=== PATIENT | female | born 1940 | race Caucasian/White ===

== ENCOUNTER 2021-07-09 20:40 | Inpatient (IN) | payer OTHER ==
[~2021-07-09] VITALS: Ht 154.9 cm; Wt 23.9 kg
[2021-07-09] MEDS ORDERED: MORPHINE SULFATE INJECTION 2 MG/2 ML SYRG IV ONE (21:00)
[2021-07-09] MEDS ORDERED: ONDANSETRON HCL 4 MG/2 ML VIAL IV ONE (21:30)
[2021-07-09] MEDS ORDERED: MORPHINE SULFATE 4 MG/ML SYR/VIAL IV ONE (21:30)
[2021-07-09 22:05] LABS: Basophils # (auto) 0 10 ^3/uL (0-0.2); Basophils % (auto) 0.5 % (0.0-2.0); Eosinophils # (auto) 0.4 10 ^3/uL (0-0.8); Hematocrit 36.4 % (36.0-46.0); Hemoglobin 12.3 g/dL (12.2-16.2); Lymphocytes # (auto) 1.2 10 ^3/uL (0.4-5.4); Lymphocytes % (auto) 14.4 % (10.0-50.0); Mean Corpuscular Hemoglobin 31.9 pg (28.0-32.0); Mean Corpuscular Hgb Conc. 33.7 g/dL (32.0-36.0); Mean Corpuscular Volume 94.7 fL (80.0-100.0); Monocytes % (auto) 12.9 % (0.0-12.0); Neutrophils # (auto) 5.4 10 ^3/uL (1.6-8.6); Neutrophils % (auto) 67.2 % (37.0-80.0); Red Blood Cells 3.85 10^6/uL (4.0-5.20); Red Cell Distribution Width 14.2 % (11.8-14.3); White Blood Cell 8.1 10^3/uL (4.4-10.8)
[2021-07-09 22:25] LABS: Chloride 104 mmol/L (98-107); Potassium 3.8 mmol/L (3.5-5.1); Sodium 135 mmol/L (136-145)
[2021-07-09 22:30] LABS: Alanine Aminotransferase 24 U/L (13-56); Albumin 3.2 g/dL (3.4-5.0); Anion Gap 7 (5-15); BUN/Creatinine Ratio 22.6; Blood Urea Nitrogen 12 mg/dL (7-18); Carbon Dioxide 24 mmol/L (21-32); GFR African American 142 mL/min; GFR Non-African American 117 mL/min; Glucose 100 mg/dL (74-106)
[2021-07-09 22:33] LABS: INR 1.05 (0.9-1.15); Partial Thromboplastin Time 32.8 sec (23.6-33.0)
[2021-07-09 22:34] LABS: Alkaline Phosphatase 53 U/L (45-117); Bilirubin, Total 0.6 mg/dL (0.2-1.0); Total Protein 6.1 g/dL (6.4-8.2)
[2021-07-09 22:45] LABS: Aspartate Aminotransferase 18 U/L (15-37)
[2021-07-10 00:23] LABS: Urine Bacteria NONE SEEN /hpf (None Seen); Urine Blood Negative /uL (Negative); Urine Mucus FEW (None Seen); Urine Specific Gravity 1.007 (1.001-1.035); Urine WBC 1 /hpf (0 - 5)
[2021-07-10] MEDS ORDERED: MORPHINE SULFATE INJECTION 2 MG/2 ML SYRG IV PRN (03:00)
[2021-07-10] MEDS ORDERED: ONDANSETRON HCL 4 MG/2 ML VIAL IV PRN (03:00)
[2021-07-10] MEDS ORDERED: NITROGLYCERIN 0.4 MG SL TAB SL PRN (03:00)
[2021-07-10] MEDS: ACETAMINOPHEN 325 MG TAB PO PRN ×2 (03:34→12:37)
[2021-07-10 07:13] LABS: Potassium 3.8 mmol/L (3.5-5.1)
[2021-07-10] MEDS ORDERED: ASPirin 81 mg TAB PO SCH (10:00)
[2021-07-10] MEDS ORDERED: FUROSEMIDE 20 MG TAB PO SCH (10:00)
[2021-07-10] MEDS ORDERED: PANTOPRAZOLE 40 MG TAB PO SCH (10:00)
[2021-07-10] MEDS ORDERED: ISOSORBIDE DINITRATE 10 MG TAB PO SCH (10:00)
[2021-07-10] MEDS ORDERED: AMIODARONE HCL 200 MG TAB PO SCH (10:00)
[2021-07-10] MEDS ORDERED: APIXABAN 2.5 MG TAB PO SCH ×3 (10:00→22:00)
[2021-07-10] MEDS ORDERED: APIX2.5T PO (11:15)
[2021-07-10] MEDS ORDERED: ATOR20TA50 PO (11:15)
[2021-07-10] MEDS ORDERED: ALEN70TA74 PO (11:15)
[2021-07-10] MEDS ORDERED: ANAS1TAB7 PO (11:16)
[2021-07-10] MEDS ORDERED: TRAZ1TAB12 PO (11:16)
[2021-07-10] MEDS ORDERED: GABA300C10 PO (11:16)
[2021-07-10] MEDS ORDERED: HYDR-4072 PO (11:16)
[2021-07-10 13:30] VITALS: BP 138/60
[2021-07-10] MEDS ORDERED: ATORVASTATIN 20 MG TAB PO SCH (22:00)
== END 2021-07-10 10:01 | disposition home or self-care (01) | DRG 313 ==
LOC: EDBD 20:40 → ER 20:46 → TELE 07-10 02:59
PROVIDERS: ADMIT Nurse Practitioner; ATTEND Nurse Practitioner
DX: R07.89 Other chest pain (principal); E44.0 Moderate protein-calorie malnutrition; I20.0 Unstable angina; Z68.1 Body mass index [BMI] 19.9 or less, adult; Z20.822 Contact with and (suspected) exposure to COVID-19; C50.919 Malignant neoplasm of unspecified site of unspecified female breast; E78.5 Hyperlipidemia, unspecified; I10 Essential (primary) hypertension; I35.0 Nonrheumatic aortic (valve) stenosis; I48.91 Unspecified atrial fibrillation; Z79.01 Long term (current) use of anticoagulants; Z85.3 Personal history of malignant neoplasm of breast; Z90.49 Acquired absence of other specified parts of digestive tract; Z93.2 Ileostomy status; Z93.3 Colostomy status; Z95.0 Presence of cardiac pacemaker; Z95.2 Presence of prosthetic heart valve; Z88.8 Allergy status to other drugs, medicaments and biological substances
CPT/HCPCS: 36415; 80048; 80053; 81001; 83690; 83880; 84484; 85025; 85610; 85730; 87426; 93306; 96374; 96375; G0378; J2405

== ENCOUNTER 2022-11-13 18:47 | Inpatient (IN) | payer OTHER ==
[~2022-11-13] VITALS: Ht 153.7 cm; Wt 53.9 kg
[~2022-11-13 18:47] MED LIST: ALEN70TA74 PO; ANAS1TAB7 PO; APIX2.5T PO; ATOR20TA50 PO; GABA300C10 PO; HYDR-4072 PO; TRAZ1TAB12 PO
[2022-11-13] MEDS ORDERED: MORPHINE SULFATE 4 MG/ML SYR/VIAL IV ONE (20:30)
[2022-11-13] MEDS ORDERED: ASPirin 325 MG TAB PO ONE (20:30)
[2022-11-13 20:39] LABS: Basophils # (auto) 0.1 10 ^3/uL (0-0.2); Basophils % (auto) 0.6 % (0.0-2.0); Eosinophils # (auto) 0.2 10 ^3/uL (0-0.8); Eosinophils % (auto) 2.9 % (0.0-7.0); Hematocrit 37.8 % (36.0-46.0); Hemoglobin 12.6 g/dL (12.2-16.2); Lymphocytes # (auto) 0.9 10 ^3/uL (0.4-5.4); Lymphocytes % (auto) 11.1 % (10.0-50.0); Mean Corpuscular Hemoglobin 33.1 pg (28.0-32.0); Mean Corpuscular Hgb Conc. 33.3 g/dL (32.0-36.0); Mean Corpuscular Volume 99.4 fL (80.0-100.0); Monocytes % (auto) 11.9 % (0.0-12.0); Neutrophils # (auto) 6.1 10 ^3/uL (1.6-8.6); Neutrophils % (auto) 73.5 % (37.0-80.0); Nucleated Red Blood Cells % 0.1 %; Red Cell Distribution Width 13.7 % (11.8-14.3); White Blood Cell 8.2 10^3/uL (4.4-10.8)
[2022-11-13 21:00] LABS: Albumin 3.7 g/dL (3.4-5.0); Anion Gap 9 (5-15); Blood Urea Nitrogen 26 mg/dL (7-18); Calcium 9.7 mg/dL (8.5-10.1); Carbon Dioxide 23 mmol/L (21-32); Chloride 103 mmol/L (98-107); Glucose 89 mg/dL (74-106); Potassium 4.6 mmol/L (3.5-5.1); Sodium 135 mmol/L (136-145)
[2022-11-13 21:01] LABS: BUN/Creatinine Ratio 38.8; GFR African American 108 mL/min; GFR Non-African American 89 mL/min
[2022-11-13 21:09] LABS: Alanine Aminotransferase 26 U/L (13-56); Alkaline Phosphatase 61 U/L (45-117); Aspartate Aminotransferase 22 U/L (15-37); Bilirubin, Total 0.4 mg/dL (0.2-1.0); Total Protein 6.4 g/dL (6.4-8.2)
[2022-11-13] MEDS ORDERED: MORPHINE SULFATE INJ 2 MG/ml SYRG IV PRN (22:15)
[2022-11-13] MEDS ORDERED: DOCUSATE SOD 100 MG CAP PO PRN (22:15)
[2022-11-13] MEDS ORDERED: NITROGLYCERIN 0.4 MG SL TAB SL PRN (22:15)
[2022-11-13] MEDS ORDERED: ONDANSETRON HCL 4 MG/2 ML VIAL IV PRN (22:15)
[2022-11-13] MEDS ORDERED: ACETAMINOPHEN 325 MG TAB PO PRN (22:15)
[2022-11-13] MEDS ORDERED: ISOS10TA2 PO (22:42)
[2022-11-13] MEDS ORDERED: traZODone HCL 50 MG TAB PO SCH (22:46)
[2022-11-14 04:41] LABS: Basophils # (auto) 0.1 10 ^3/uL (0-0.2); Basophils % (auto) 1.2 % (0.0-2.0); Eosinophils # (auto) 0.2 10 ^3/uL (0-0.8); Eosinophils % (auto) 3.7 % (0.0-7.0); Hematocrit 37.8 % (36.0-46.0); Hemoglobin 12.7 g/dL (12.2-16.2); Lymphocytes % (auto) 17.8 % (10.0-50.0); Mean Corpuscular Hgb Conc. 33.5 g/dL (32.0-36.0); Mean Corpuscular Volume 98.4 fL (80.0-100.0); Monocytes # (auto) 0.6 10 ^3/uL (0-1.3); Monocytes % (auto) 10.6 % (0.0-12.0); Neutrophils # (auto) 3.9 10 ^3/uL (1.6-8.6); Neutrophils % (auto) 66.7 % (37.0-80.0); Red Blood Cells 3.85 10^6/uL (4.0-5.20); Red Cell Distribution Width 13.5 % (11.8-14.3); White Blood Cell 5.9 10^3/uL (4.4-10.8)
[2022-11-14 05:00] LABS: Albumin 3.4 g/dL (3.4-5.0); BUN/Creatinine Ratio 28.8; Calcium 9.7 mg/dL (8.5-10.1); Potassium 3.9 mmol/L (3.5-5.1)
[2022-11-14 05:03] LABS: Bilirubin, Total 0.5 mg/dL (0.2-1.0); Total Protein 6.6 g/dL (6.4-8.2)
[2022-11-14] MEDS: HYDROcodone-ACET 5/325MG TAB PO PRN ×2 (07:58→13:00)
[2022-11-14] MEDS: APIXABAN 2.5 MG TAB PO SCH ×2 (09:56→22:30)
[2022-11-14] MEDS: ISOSORBIDE DINITRATE 10 MG TAB PO SCH ×2 (09:58→22:31)
[2022-11-14] MEDS ORDERED: ATORVASTATIN 20 MG TAB PO SCH ×2 (10:00→22:00)
[2022-11-14] MEDS ORDERED: PRED1PAK8 PO (11:55)
[2022-11-14] MEDS ORDERED: POM PO (11:55)
[2022-11-14] MEDS ORDERED: CLON0.1T PO (11:55)
[2022-11-14] MEDS ORDERED: DULO20CA PO (11:55)
[2022-11-14] MEDS ORDERED: METH2.5T PO (11:55)
[2022-11-14] MEDS ORDERED: GABA300C10 PO (11:55)
[2022-11-14] MEDS: HYDROcodone-ACET 10/325MG TAB PO PRN ×2 (16:08→20:32)
[2022-11-14] MEDS ORDERED: traZODone HCL 50 MG TAB PO SCH (22:00)
[2022-11-15 02:18] VITALS: BP 121/54
[2022-11-15] MEDS ORDERED: APIX2.5T PO (02:55)
[2022-11-15] MEDS ORDERED: GABA400C11 PO (02:55)
[2022-11-15 05:00] VITALS: BP 111/53
[2022-11-15] MEDS: HYDROcodone-ACET 10/325MG TAB PO PRN ×2 (05:40→12:35)
[2022-11-15 08:00] VITALS: BP 112/65
[2022-11-15] MEDS: ISOSORBIDE DINITRATE 10 MG TAB PO SCH (08:57)
[2022-11-15] MEDS: APIXABAN 2.5 MG TAB PO SCH (08:57)
[2022-11-15 09:00] VITALS: BP 112/65
[2022-11-15 13:00] VITALS: BP 112/60
[2022-11-15 14:50] VITALS: BP 112/65
== END 2022-11-15 15:20 | disposition home health service (06) | DRG 303 ==
LOC: EDUNIT# 18:47 → EDBD 18:47 → ER 18:50 → TELE 22:42 → TELE-CENTR 11-14 23:45
PROVIDERS: ADMIT Nurse Practitioner Family; ATTEND Internal Medicine
PROC: 4B02XSZ Measurement of Cardiac Pacemaker, External Approach (ICD-10-PCS; principal; 2022-11-15)
DX: I25.110 Atherosclerotic heart disease of native coronary artery with unstable angina pectoris (principal); I48.20 Chronic atrial fibrillation, unspecified; I10 Essential (primary) hypertension; I35.0 Nonrheumatic aortic (valve) stenosis; M06.9 Rheumatoid arthritis, unspecified; Z20.822 Contact with and (suspected) exposure to COVID-19; Z79.01 Long term (current) use of anticoagulants; E78.5 Hyperlipidemia, unspecified; Z95.3 Presence of xenogenic heart valve; Z85.3 Personal history of malignant neoplasm of breast; Z95.0 Presence of cardiac pacemaker; Z95.1 Presence of aortocoronary bypass graft; Z88.5 Allergy status to narcotic agent
CPT/HCPCS: 36415; 71045; 80053; 84484; 85025; 87426; 93005; 93306; 99291; G0378

== ENCOUNTER 2022-12-31 19:25 | Emergency (ER) | payer OTHER ==
[~2022-12-31] VITALS: Ht 157.5 cm; Wt 59.1 kg
[~2022-12-31 19:25] MED LIST changes: +CLON0.1T PO; +DULO20CA PO; +GABA400C11 PO; +ISOS10TA2 PO; +METH2.5T PO; +POM PO; +PRED1PAK8 PO
[2023-01-01] MEDS ORDERED: ONDANSETRON ODT 4 MG TAB PO ONE (03:00)
[2023-01-01] MEDS ORDERED: HYDROcodone-ACET 10/325MG TAB PO ONE (03:00)
[2023-01-01] MEDS ORDERED: KETOROLAC TROMETH 60MG/2ML VIAL IM ONE (03:15)
[2023-01-01 03:37] LABS: Basophils # (auto) 0.1 10 ^3/uL (0-0.2); Basophils % (auto) 0.6 % (0.0-2.0); Eosinophils # (auto) 0.1 10 ^3/uL (0-0.8); Eosinophils % (auto) 0.9 % (0.0-7.0); Hematocrit 36.1 % (36.0-46.0); Lymphocytes # (auto) 0.8 10 ^3/uL (0.4-5.4); Lymphocytes % (auto) 7.9 % (10.0-50.0); Mean Corpuscular Hemoglobin 32.9 pg (28.0-32.0); Mean Corpuscular Hgb Conc. 33.2 g/dL (32.0-36.0); Mean Corpuscular Volume 98.9 fL (80.0-100.0); Monocytes # (auto) 1.2 10 ^3/uL (0-1.3); Monocytes % (auto) 12.5 % (0.0-12.0); Neutrophils # (auto) 7.6 10 ^3/uL (1.6-8.6); Neutrophils % (auto) 78.1 % (37.0-80.0); Red Blood Cells 3.65 10^6/uL (4.0-5.20); Red Cell Distribution Width 13.6 % (11.8-14.3); White Blood Cell 9.7 10^3/uL (4.4-10.8)
[2023-01-01 03:54] LABS: Albumin 3.4 g/dL (3.4-5.0); BUN/Creatinine Ratio 15.5; Calcium 8.8 mg/dL (8.5-10.1); Potassium 3.7 mmol/L (3.5-5.1)
[2023-01-01 03:57] LABS: Bilirubin, Total 0.5 mg/dL (0.2-1.0); Total Protein 7.4 g/dL (6.4-8.2)
[2023-01-01 04:36] VITALS: BP 111/48
[2023-01-01] MEDS ORDERED: METH500T22 PO (04:39)
== END 2023-01-01 05:32 | disposition home or self-care (01) ==
LOC: ER 19:25 → EDBD 19:25 → ER 01-01 04:46
DX: M62.830 Muscle spasm of back (principal); E87.1 Hypo-osmolality and hyponatremia; I48.91 Unspecified atrial fibrillation; E78.5 Hyperlipidemia, unspecified; I10 Essential (primary) hypertension; Z98.890 Other specified postprocedural states; Z79.899 Other long term (current) drug therapy
CPT/HCPCS: 36415; 72131; 80053; 83690; 84484; 85025; 96372; 99285; J1885; Q0162

== ENCOUNTER 2023-05-19 13:03 | Inpatient (IN) | payer OTHER ==
[~2023-05-19] VITALS: Ht 152.4 cm; Wt 60.7 kg
[~2023-05-19 13:03] MED LIST changes: +GABA-1250 PO; +GABA-1251 PO; -GABA300C10 PO; -GABA400C11 PO; +METH-1181 PO
[2023-05-19] MEDS ORDERED: NITROGLYCERIN 2% OINT 1GM PKG TD STA (13:32)
[2023-05-19] MEDS ORDERED: ONDANSETRON HCL 4 MG/2 ML VIAL IV ONE (13:45)
[2023-05-19] MEDS ORDERED: SODIUM CHLORIDE 0.9% 1,000 ML IV ONE (13:45)
[2023-05-19] MEDS ORDERED: ACETAMINOPHEN 325 MG TAB PO ONE (13:45)
[2023-05-19] MEDS ORDERED: dilTIAZem 25 MG/5 ML VIAL IV ONE (13:45)
[2023-05-19] MEDS ORDERED: ASPirin 81 mg TAB PO ONE (13:45)
[2023-05-19] MEDS ORDERED: MORPHINE SULFATE 4 MG/ML SYR/VIAL IV ONE (13:45)
[2023-05-19 14:04] LABS: Basophils # (auto) 0 10 ^3/uL (0-0.2); Basophils % (auto) 0.6 % (0.0-2.0); Eosinophils # (auto) 0 10 ^3/uL (0-0.8); Eosinophils % (auto) 0.6 % (0.0-7.0); Hematocrit 33.4 % (36.0-46.0); Lymphocytes # (auto) 0.3 10 ^3/uL (0.4-5.4); Lymphocytes % (auto) 3.8 % (10.0-50.0); Mean Corpuscular Hemoglobin 33.1 pg (28.0-32.0); Mean Corpuscular Hgb Conc. 33.1 g/dL (32.0-36.0); Monocytes # (auto) 0.5 10 ^3/uL (0-1.3); Monocytes % (auto) 7.3 % (0.0-12.0); Neutrophils # (auto) 6.2 10 ^3/uL (1.6-8.6); Neutrophils % (auto) 87.7 % (37.0-80.0); Nucleated Red Blood Cells % 0.1 %; Red Blood Cells 3.34 10^6/uL (4.0-5.20); Red Cell Distribution Width 13.4 % (11.8-14.3); White Blood Cell 7.1 10^3/uL (4.4-10.8)
[2023-05-19 14:09] LABS: Urine Bacteria FEW /hpf (None Seen); Urine Blood TRACE /uL (Negative); Urine Hyaline Cast FEW /lpf (0 - 2); Urine Specific Gravity 1.004 (1.001-1.035); Urine WBC <1 /hpf (0 - 5)
[2023-05-19 14:17] LABS: Albumin 3.3 g/dL (3.4-5.0); Potassium 4.3 mmol/L (3.5-5.1)
[2023-05-19 14:20] LABS: BUN/Creatinine Ratio 21.2 (10.0-20.0); Bilirubin, Total 0.3 mg/dL (0.2-1.0); Total Protein 6.1 g/dL (6.4-8.2)
[2023-05-19 14:22] LABS: INR 1.04 (0.9-1.15)
[2023-05-19] MEDS ORDERED: HYDROcodone-ACET 10/325MG TAB PO ONE (17:00)
[2023-05-19] MEDS ORDERED: IOHEXOL 350 MG/ML 100ML IJ ONE (17:38)
[2023-05-19] MEDS ORDERED: ACETAMINOPHEN 325 MG TAB PO PRN (21:00)
[2023-05-19] MEDS ORDERED: DOCUSATE SOD 100 MG CAP PO PRN (21:00)
[2023-05-19] MEDS ORDERED: ONDANSETRON HCL 4 MG/2 ML VIAL IV PRN (21:00)
[2023-05-19] MEDS ORDERED: SODIUM CHLORIDE 0.9% 1,000 ML IV SCH (21:00)
[2023-05-19] MEDS: ATORVASTATIN 20 MG TAB PO SCH (22:00)
[2023-05-19] MEDS: APIXABAN 2.5 MG TAB PO SCH (22:00)
[2023-05-19] MEDS ORDERED: NITROGLYCERIN 0.4 MG SL TAB SL PRN (22:45)
[2023-05-19] MEDS ORDERED: MORPHINE SULFATE INJ 2 MG/ml SYRG IV PRN (22:45)
[2023-05-19] MEDS: HYDROcodone-ACET 5/325MG TAB PO PRN (23:07)
[2023-05-20] MEDS: HYDROcodone-ACET 5/325MG TAB PO PRN ×4 (04:19→21:50)
[2023-05-20 06:18] LABS: Albumin 3.3 g/dL (3.4-5.0); BUN/Creatinine Ratio 14.9 (10.0-20.0); Calcium 8.6 mg/dL (8.5-10.1); Potassium 3.4 mmol/L (3.5-5.1)
[2023-05-20 06:20] LABS: Bilirubin, Total 0.4 mg/dL (0.2-1.0); Total Protein 6.5 g/dL (6.4-8.2)
[2023-05-20 06:30] LABS: Basophils # (auto) 0.1 10 ^3/uL (0-0.2); Basophils % (auto) 1.1 % (0.0-2.0); Eosinophils # (auto) 0.2 10 ^3/uL (0-0.8); Eosinophils % (auto) 3.3 % (0.0-7.0); Hematocrit 35.4 % (36.0-46.0); Hemoglobin 11.9 g/dL (12.2-16.2); Lymphocytes # (auto) 0.8 10 ^3/uL (0.4-5.4); Lymphocytes % (auto) 14.9 % (10.0-50.0); Mean Corpuscular Hemoglobin 33.3 pg (28.0-32.0); Mean Corpuscular Hgb Conc. 33.6 g/dL (32.0-36.0); Mean Corpuscular Volume 99.2 fL (80.0-100.0); Monocytes # (auto) 0.6 10 ^3/uL (0-1.3); Monocytes % (auto) 11.3 % (0.0-12.0); Neutrophils # (auto) 3.7 10 ^3/uL (1.6-8.6); Neutrophils % (auto) 69.4 % (37.0-80.0); Nucleated Red Blood Cells % 0.1 %; Red Blood Cells 3.57 10^6/uL (4.0-5.20); White Blood Cell 5.4 10^3/uL (4.4-10.8)
[2023-05-20] MEDS ORDERED: FOLI5CAP PO (10:20)
[2023-05-20] MEDS ORDERED: PRIM50TA5 PO (10:20)
[2023-05-20] MEDS: APIXABAN 2.5 MG TAB PO SCH ×2 (10:35→21:49)
[2023-05-20] MEDS ORDERED: METHOTREXATE 2.5 MG TAB PO ONE ×2 (11:15→11:45)
[2023-05-20] MEDS ORDERED: METHOTREXATE 2.5MG TABLET PO SCH (12:00)
[2023-05-20] MEDS ORDERED: GABA-339 PO (12:49)
[2023-05-20] MEDS: GABAPENTIN 400 MG CAP PO SCH ×2 (14:27→21:49)
[2023-05-20 21:20] VITALS: BP 152/72
[2023-05-20] MEDS: ATORVASTATIN 20 MG TAB PO SCH (21:49)
[2023-05-20 22:00] VITALS: BP 156/63
[2023-05-21] MEDS: HYDROcodone-ACET 5/325MG TAB PO PRN ×3 (01:41→13:23)
[2023-05-21 05:00] VITALS: BP 146/60
[2023-05-21] MEDS: GABAPENTIN 400 MG CAP PO SCH ×3 (05:36→20:42)
[2023-05-21] MEDS: APIXABAN 2.5 MG TAB PO SCH ×2 (08:43→20:42)
[2023-05-21 09:00] VITALS: BP 152/56
[2023-05-21] MEDS ORDERED: FOLIC ACID 1 MG TAB PO SCH (10:00)
[2023-05-21 13:00] VITALS: BP 124/37
[2023-05-21] MEDS ORDERED: HYDROcodone-ACET 10/325MG TAB PO PRN (15:00)
[2023-05-21 17:00] VITALS: BP_SYST 109; BP_SYST 154; BP_DIAS 70; BP_DIAS 71
[2023-05-21] MEDS: ATORVASTATIN 20 MG TAB PO SCH (20:41)
[2023-05-21 22:00] VITALS: BP 150/82
[2023-05-22 00:02] VITALS: BP 150/82
== END 2023-05-22 00:40 | disposition home health service (06) | DRG 310 ==
LOC: ER 13:03 → EDBD 13:03 → TELE 22:41 → TELE-WESTW 05-20 20:44
PROVIDERS: ADMIT Nurse Practitioner Family; ATTEND Internal Medicine
DX: I48.0 Paroxysmal atrial fibrillation (principal); G62.9 Polyneuropathy, unspecified; M06.9 Rheumatoid arthritis, unspecified; F41.9 Anxiety disorder, unspecified; M81.0 Age-related osteoporosis without current pathological fracture; I10 Essential (primary) hypertension; E78.5 Hyperlipidemia, unspecified; Z90.49 Acquired absence of other specified parts of digestive tract; Z85.3 Personal history of malignant neoplasm of breast; Z90.710 Acquired absence of both cervix and uterus; Z88.5 Allergy status to narcotic agent; F32.A Depression, unspecified
CPT/HCPCS: 36415; 71045; 71275; 80053; 81001; 83735; 83880; 84443; 84484; 85025; 85379; 85610; 85730; 93005; 93306; 96360; 96361; G0378

== ENCOUNTER 2023-07-06 15:20 | Inpatient (IN) | payer OTHER ==
[~2023-07-06] VITALS: Ht 152.4 cm; Wt 65.2 kg
[~2023-07-06 15:20] MED LIST changes: +FOLI5CAP PO; -GABA-1250 PO; -GABA-1251 PO; +GABA-339 PO; -ISOS10TA2 PO; -POM PO; +PRIM50TA5 PO
[2023-07-06 17:00] VITALS: BP 140/62; PULSE 98; RESP 17; TEMP 98.6; O2SAT 100
[2023-07-06] MEDS ORDERED: NITROGLYCERIN 0.4 MG SL TAB SL PRN (17:30)
[2023-07-06] MEDS ORDERED: MORPHINE SULFATE INJ 2 MG/ml SYRG IV PRN (17:30)
[2023-07-06] MEDS ORDERED: OXYCODONE W/ ACETAMINOPHEN 5/325MG TABLET PO PRN (17:45)
[2023-07-06] MEDS ORDERED: LORazepam 2MG/ML-1ML VIAL IV PRN (17:45)
[2023-07-06] MEDS ORDERED: ONDANSETRON HCL 4 MG/2 ML VIAL IV PRN (17:45)
[2023-07-06] MEDS ORDERED: cloNIDine HCL 0.1 MG TAB PO PRN (17:45)
[2023-07-06 20:00] VITALS: BP 157/67; PULSE 95; PULSE 97; RESP 18; TEMP 99.9; O2SAT 100
[2023-07-06] MEDS: APIXABAN 2.5 MG TAB PO SCH (21:48)
[2023-07-06] MEDS: PANTOPRAZOLE 40 MG/10 ML VIAL INJ IV SCH (21:48)
[2023-07-06] MEDS: GABAPENTIN 400 MG CAP PO SCH (21:48)
[2023-07-06] MEDS: HYDROcodone-ACET 5/325MG TAB PO PRN (21:50)
[2023-07-06] MEDS: PRIMIDONE 50 MG TAB PO SCH (21:50)
[2023-07-06 22:00] VITALS: BP 157/67; PULSE 95; RESP 18; TEMP 99.9; O2SAT 100
[2023-07-06] MEDS ORDERED: APIXABAN 2.5 MG TAB PO ONE (22:00)
[2023-07-06] MEDS ORDERED: traZODone HCL 50 MG TAB PO SCH (22:00)
[2023-07-06] MEDS ORDERED: TRAZ-181 PO (23:18)
[2023-07-07] VITALS (7 sets, daily range): BP systolic 104–156; BP diastolic 41–94; PULSE 84–102; RESP 18–20; TEMP 98.3–99.4; O2SAT 92–98
[2023-07-07 05:35] LABS: Urine Bacteria FEW /hpf (None Seen); Urine Blood 1+ /uL (Negative); Urine Clarity Clear (Clear); Urine Color Yellow (Yellow); Urine Hyaline Cast FEW /lpf (0 - 2); Urine Mucus FEW (None Seen); Urine Protein, UAD TRACE (Negative); Urine Specific Gravity 1.023 (1.001-1.035); Urine Urobilinogen Normal (Negative); Urine WBC 6 /hpf (0 - 5); Urine pH 5.5 (5.0-8.0)
[2023-07-07] MEDS: GABAPENTIN 400 MG CAP PO SCH ×3 (05:40→21:49)
[2023-07-07] MEDS: HYDROcodone-ACET 5/325MG TAB PO PRN ×3 (05:41→17:39)
[2023-07-07 07:44] LABS: Basophils # (auto) 0.1 10 ^3/uL (0-0.2); Basophils % (auto) 0.6 % (0.0-2.0); Eosinophils # (auto) 0 10 ^3/uL (0-0.8); Eosinophils % (auto) 0.3 % (0.0-7.0); Hematocrit 36.3 % (36.0-46.0); Hemoglobin 11.9 g/dL (12.2-16.2); Lymphocytes # (auto) 0.6 10 ^3/uL (0.4-5.4); Lymphocytes % (auto) 4.1 % (10.0-50.0); Mean Corpuscular Hemoglobin 32.3 pg (28.0-32.0); Mean Corpuscular Hgb Conc. 32.8 g/dL (32.0-36.0); Mean Corpuscular Volume 98.7 fL (80.0-100.0); Monocytes # (auto) 1.5 10 ^3/uL (0-1.3); Neutrophils # (auto) 11.3 10 ^3/uL (1.6-8.6); Red Blood Cells 3.68 10^6/uL (4.0-5.20); Red Cell Distribution Width 13.7 % (11.8-14.3); White Blood Cell 13.4 10^3/uL (4.4-10.8)
[2023-07-07] MEDS ORDERED: HYDROmorphone HCL 2 MG/ML VL/or syr IV PRN (08:00)
[2023-07-07 08:18] LABS: Calcium 8.9 mg/dL (8.5-10.1); Potassium 3.2 mmol/L (3.5-5.1)
[2023-07-07 08:32] LABS: Albumin 3.5 g/dL (3.4-5.0); Bilirubin, Total 0.8 mg/dL (0.2-1.0); CRP High Sensitivity 11.4 mg/dL (< 0.3); Total Protein 6.5 g/dL (6.4-8.2)
[2023-07-07] MEDS: PANTOPRAZOLE 40 MG/10 ML VIAL INJ IV SCH ×3 (08:40→21:48)
[2023-07-07] MEDS: ATORVASTATIN 20 MG TAB PO SCH (08:41)
[2023-07-07] MEDS: APIXABAN 2.5 MG TAB PO SCH ×2 (08:41→21:49)
[2023-07-07] MEDS ORDERED: ENOXAPARIN SOD 40 MG/0.4 ML SYRINGE SC SCH (10:00)
[2023-07-07] MEDS: DULOXETINE HCL 20 MG PO SCH (10:00)
[2023-07-07] MEDS ORDERED: predniSONE 5 MG TAB PO SCH (10:00)
[2023-07-07] MEDS ORDERED: ALLOPURINOL 100 MG TAB PO ONE (14:15)
[2023-07-07] MEDS: HYDROmorphone HCL 2 MG/ML VL/or syr IV PRN ×2 (16:19→21:51)
[2023-07-07] MEDS ORDERED: traZODone HCL 50 MG TAB PO SCH (18:00)
[2023-07-07] MEDS: predniSONE 5 MG TAB PO SCH (21:49)
[2023-07-07] MEDS: traZODone HCL 50 MG TAB PO SCH (21:49)
[2023-07-07] MEDS: PRIMIDONE 50 MG TAB PO SCH (21:50)
[2023-07-08] VITALS (7 sets, daily range): BP systolic 141–165; BP diastolic 55–71; PULSE 64–77; RESP 16–20; TEMP 97.4–98; O2SAT 96–98
[2023-07-08] MEDS: GABAPENTIN 400 MG CAP PO SCH ×3 (05:43→22:06)
[2023-07-08] MEDS: HYDROcodone-ACET 5/325MG TAB PO PRN ×4 (05:44→22:05)
[2023-07-08] MEDS: PANTOPRAZOLE 40 MG/10 ML VIAL INJ IV SCH ×2 (09:01→22:05)
[2023-07-08] MEDS: HYDROmorphone HCL 2 MG/ML VL/or syr IV PRN ×2 (09:02→14:44)
[2023-07-08] MEDS: ALLOPURINOL 100 MG TAB PO SCH (09:03)
[2023-07-08] MEDS: ATORVASTATIN 20 MG TAB PO SCH (09:03)
[2023-07-08] MEDS: APIXABAN 2.5 MG TAB PO SCH ×2 (09:04→22:06)
[2023-07-08] MEDS: predniSONE 5 MG TAB PO SCH ×2 (09:14→22:04)
[2023-07-08] MEDS: DULOXETINE HCL 20 MG PO SCH (09:23)
[2023-07-08] MEDS: traZODone HCL 50 MG TAB PO SCH (22:06)
[2023-07-08] MEDS: PRIMIDONE 50 MG TAB PO SCH (22:30)
[2023-07-09 05:00] VITALS: BP 156/52; PULSE 70; RESP 18; TEMP 97.8; O2SAT 98
[2023-07-09 06:04] LABS: Basophils # (auto) 0 10 ^3/uL (0-0.2); Basophils % (auto) 0.2 % (0.0-2.0); Eosinophils # (auto) 0 10 ^3/uL (0-0.8); Eosinophils % (auto) 0.1 % (0.0-7.0); Hemoglobin 11.5 g/dL (12.2-16.2); Lymphocytes # (auto) 0.3 10 ^3/uL (0.4-5.4); Lymphocytes % (auto) 1.9 % (10.0-50.0); Mean Corpuscular Hemoglobin 32.7 pg (28.0-32.0); Mean Corpuscular Hgb Conc. 33.8 g/dL (32.0-36.0); Mean Corpuscular Volume 96.7 fL (80.0-100.0); Monocytes # (auto) 0.6 10 ^3/uL (0-1.3); Neutrophils # (auto) 14.5 10 ^3/uL (1.6-8.6); Neutrophils % (auto) 93.8 % (37.0-80.0); Red Blood Cells 3.51 10^6/uL (4.0-5.20); Red Cell Distribution Width 13.6 % (11.8-14.3); White Blood Cell 15.5 10^3/uL (4.4-10.8)
[2023-07-09 06:06] LABS: Calcium 9.4 mg/dL (8.5-10.1); Potassium 4.4 mmol/L (3.5-5.1)
[2023-07-09 06:15] LABS: CRP High Sensitivity 10.5 mg/dL (< 0.3)
[2023-07-09] MEDS: GABAPENTIN 400 MG CAP PO SCH ×3 (06:26→22:45)
[2023-07-09] MEDS: HYDROcodone-ACET 5/325MG TAB PO PRN ×2 (06:31→21:01)
[2023-07-09 08:00] VITALS: PULSE 71; PULSE 77; RESP 17; O2SAT 93
[2023-07-09 08:32] VITALS: BP 142/74; PULSE 77; RESP 17; TEMP 98; O2SAT 93
[2023-07-09] MEDS: ATORVASTATIN 20 MG TAB PO SCH (09:11)
[2023-07-09] MEDS: predniSONE 5 MG TAB PO SCH ×2 (09:11→22:45)
[2023-07-09] MEDS: APIXABAN 2.5 MG TAB PO SCH ×2 (09:11→22:46)
[2023-07-09] MEDS: ALLOPURINOL 100 MG TAB PO SCH (09:11)
[2023-07-09] MEDS: PANTOPRAZOLE 40 MG/10 ML VIAL INJ IV SCH ×2 (09:12→22:46)
[2023-07-09] MEDS: DULOXETINE HCL 20 MG PO SCH (09:12)
[2023-07-09] MEDS: HYDROmorphone HCL 2 MG/ML VL/or syr IV PRN (13:26)
[2023-07-09 16:24] VITALS: BP 153/71; PULSE 84; RESP 17; TEMP 97.8; O2SAT 98
[2023-07-09 20:00] VITALS: PULSE 73; PULSE 77; RESP 18; O2SAT 93
[2023-07-09 22:00] VITALS: BP 156/71; PULSE 73; RESP 18; TEMP 97.9; O2SAT 93
[2023-07-09] MEDS: traZODone HCL 50 MG TAB PO SCH (22:45)
[2023-07-09] MEDS: PRIMIDONE 50 MG TAB PO SCH (22:46)
[2023-07-10] MEDS: HYDROmorphone HCL 2 MG/ML VL/or syr IV PRN (01:52)
[2023-07-10 05:00] VITALS: BP 157/81; PULSE 70; RESP 16; TEMP 98.1; O2SAT 96
[2023-07-10] MEDS: GABAPENTIN 400 MG CAP PO SCH ×2 (05:37→15:52)
[2023-07-10] MEDS: HYDROcodone-ACET 5/325MG TAB PO PRN ×2 (05:58→12:53)
[2023-07-10 08:00] VITALS: PULSE 70; PULSE 83; RESP 16; O2SAT 96
[2023-07-10 09:00] VITALS: BP 173/81; PULSE 82; RESP 21; TEMP 97.5; O2SAT 100
[2023-07-10] MEDS: DULOXETINE HCL 20 MG PO SCH (09:53)
[2023-07-10] MEDS: PANTOPRAZOLE 40 MG/10 ML VIAL INJ IV SCH (09:53)
[2023-07-10] MEDS: ATORVASTATIN 20 MG TAB PO SCH (09:53)
[2023-07-10] MEDS: APIXABAN 2.5 MG TAB PO SCH (09:53)
[2023-07-10] MEDS: predniSONE 5 MG TAB PO SCH (09:53)
[2023-07-10] MEDS: ALLOPURINOL 100 MG TAB PO SCH (09:53)
[2023-07-10] MEDS ORDERED: PRED20TA2 PO (13:15)
[2023-07-10] MEDS ORDERED: GABA-339 PO (13:15)
[2023-07-10] MEDS ORDERED: IBUP-1454 PO (13:15)
[2023-07-10] MEDS ORDERED: FAMO-161 PO (13:15)
[2023-07-10 15:55] VITALS: BP 154/80; PULSE 82; RESP 18; TEMP 97.7; O2SAT 99
== END 2023-07-10 16:00 | disposition home or self-care (01) | DRG 563 ==
LOC: TELE-EAST 16:39
PROVIDERS: ADMIT Hospitalist; ATTEND Hospitalist
DX: S93.402A Sprain of unspecified ligament of left ankle, initial encounter (principal); I11.9 Hypertensive heart disease without heart failure; F41.9 Anxiety disorder, unspecified; M06.9 Rheumatoid arthritis, unspecified; M54.50 Low back pain, unspecified; F32.A Depression, unspecified; I48.91 Unspecified atrial fibrillation; W18.39XA Other fall on same level, initial encounter; M19.90 Unspecified osteoarthritis, unspecified site; Z80.1 Family history of malignant neoplasm of trachea, bronchus and lung; Z82.0 Family history of epilepsy and other diseases of the nervous system; Z82.3 Family history of stroke; Z82.49 Family history of ischemic heart disease and other diseases of the circulatory system; Z82.5 Family history of asthma and other chronic lower respiratory diseases; Z93.3 Colostomy status; Z88.5 Allergy status to narcotic agent; Z95.2 Presence of prosthetic heart valve; Y93.89 Activity, other specified; Y92.098 Other place in other non-institutional residence as the place of occurrence of the external cause; Y99.8 Other external cause status
CPT/HCPCS: 36415; 72148; 73721; 80048; 80053; 81001; 85025; 86141; 87081; 93970; 97110; 97116; 97163; 97530; C9113; G0378; J2405

== ENCOUNTER 2024-01-14 11:15 | Inpatient (IN) | payer OTHER ==
[~2024-01-14] VITALS: Ht 152.4 cm; Wt 57.3 kg
[~2024-01-14 11:15] MED LIST changes: +FAMO-161 PO; +IBUP-1454 PO; -PRED1PAK8 PO; +PRED20TA2 PO; +TRAZ-181 PO; -TRAZ1TAB12 PO
[2024-01-14 13:03] LABS: Basophils # (auto) 0.1 10 ^3/uL (0-0.2); Basophils % (auto) 0.9 % (0.0-2.0); Eosinophils # (auto) 0.1 10 ^3/uL (0-0.8); Eosinophils % (auto) 0.8 % (0.0-7.0); Hematocrit 35.3 % (36.0-46.0); Hemoglobin 11.5 g/dL (12.2-16.2); Lymphocytes # (auto) 0.3 10 ^3/uL (0.4-5.4); Lymphocytes % (auto) 2.2 % (10.0-50.0); Mean Corpuscular Hemoglobin 30.8 pg (28.0-32.0); Mean Corpuscular Hgb Conc. 32.5 g/dL (32.0-36.0); Mean Corpuscular Volume 94.6 fL (80.0-100.0); Monocytes # (auto) 0.8 10 ^3/uL (0-1.3); Monocytes % (auto) 6.5 % (0.0-12.0); Neutrophils # (auto) 11.5 10 ^3/uL (1.6-8.6); Neutrophils % (auto) 89.6 % (37.0-80.0); Red Blood Cells 3.73 10^6/uL (4.0-5.20); Red Cell Distribution Width 14.2 % (11.8-14.3); White Blood Cell 12.9 10^3/uL (4.4-10.8)
[2024-01-14 13:19] LABS: Alanine Aminotransferase 20 U/L (7-40); Albumin 4.3 g/dL (3.2-4.8); Alkaline Phosphatase 78 U/L (46-116); Anion Gap 6 (5-15); Aspartate Aminotransferase 21 U/L (13-40); Blood Urea Nitrogen 13 mg/dL (9-23); Calcium 9.6 mg/dL (8.5-10.1); Carbon Dioxide 24 mmol/L (20-30); Chloride 102 mmol/L (98-107); Glucose 213 mg/dL (74-106); Potassium 4.1 mmol/L (3.5-5.1); Sodium 132 mmol/L (136-145)
[2024-01-14 13:20] LABS: Bilirubin, Total 0.6 mg/dL (0.2-1.0); Creatine Kinase IFCC 32 U/L (34-145); Total Protein 6.7 g/dL (5.7-8.2)
[2024-01-14] MEDS ORDERED: DEXTROSE (50%) 50ML SYRG IV PRN (16:45)
[2024-01-14] MEDS ORDERED: NITROGLYCERIN 0.4 MG SL TAB SL PRN (16:45)
[2024-01-14] MEDS ORDERED: MORPHINE SULFATE INJ 2 MG/ml SYRG IV PRN ×2 (16:45)
[2024-01-14] MEDS ORDERED: OXYCODONE W/ ACETAMINOPHEN 5/325MG TABLET PO PRN (16:45)
[2024-01-14] MEDS ORDERED: ONDANSETRON HCL 4 MG/2 ML VIAL IV PRN (16:45)
[2024-01-14] MEDS: SODIUM CHLORIDE 0.9% 1,000 ML IV ONE (17:00)
[2024-01-14 20:33] LABS: Urine Bacteria NONE SEEN /hpf (None Seen); Urine Blood Negative /uL (Negative); Urine Clarity Clear (Clear); Urine Color Yellow (Yellow); Urine Hyaline Cast FEW /lpf (0 - 2); Urine Mucus FEW (None Seen); Urine Protein, UAD 1+ (Negative); Urine Specific Gravity 1.022 (1.001-1.035); Urine Urobilinogen Normal (Negative); Urine WBC 4 /hpf (0 - 5); Urine pH 5.5 (5.0-8.0)
[2024-01-14] MEDS: InsuLIN REG 1unit/0.01ml Soln (100units/ml) SC SCH (20:41)
[2024-01-14] MEDS: ACCU-CHEK COMFORT CURVE STRIP VI SCH (20:41)
[2024-01-14 21:38] LABS: COVID19 ANTIGEN SOFIA FIA NEGATIVE (NEGATIVE); Rapid Influenza A Negative (Negative); Rapid Influenza B Negative (Negative)
[2024-01-14] MEDS: MORPHINE SULFATE 4 MG/ML SYR/VIAL IV ONE (23:37)
[2024-01-14] MEDS: methylPREDNISolone SOD SUCC 40 MG/ML VL IV SCH (23:37)
[2024-01-14] MEDS: ONDANSETRON HCL 4 MG/2 ML VIAL IV ONE (23:37)
[2024-01-14] MEDS: GABAPENTIN 300 MG CAP PO SCH (23:40)
[2024-01-14] MEDS: PRIMIDONE 50 MG TAB PO SCH (23:40)
[2024-01-14] MEDS: METHOCARBAMOL 500 MG TAB PO SCH (23:41)
[2024-01-14] MEDS: traZODone HCL 50 MG TAB PO SCH (23:41)
[2024-01-14] MEDS: APIXABAN 2.5 MG TAB PO SCH (23:42)
[2024-01-14] MEDS: levoFLOXacin 500MG 100 ML IV ONE (23:53)
[2024-01-15] VITALS (9 sets, daily range): BP systolic 123–173; BP diastolic 38–77; PULSE 70–90; RESP 16–19; TEMP 97.5–97.9; O2SAT 92–98
[2024-01-15 06:00] LABS: Hematocrit 35.9 % (36.0-46.0); Hemoglobin 11.9 g/dL (12.2-16.2); Mean Corpuscular Hemoglobin 31.3 pg (28.0-32.0); Mean Corpuscular Hgb Conc. 33.1 g/dL (32.0-36.0); Mean Corpuscular Volume 94.5 fL (80.0-100.0); Red Cell Distribution Width 14.2 % (11.8-14.3); White Blood Cell 13.3 10^3/uL (4.4-10.8)
[2024-01-15 06:07] LABS: Basophils % (manual) 0 (0.0-2.0); Blast Cells 0; Eosinophils % (manual) 0 (0-7); Metamyelocytes % 0; Myelocytes % 0; Promyelocytes % 0; Reactive Lymphocytes 0
[2024-01-15 06:14] LABS: Chloride 104 mmol/L (98-107); Potassium 4.2 mmol/L (3.5-5.1); Sodium 133 mmol/L (136-145)
[2024-01-15 06:15] LABS: Anion Gap 7 (5-15); Calcium 9.6 mg/dL (8.5-10.1); Carbon Dioxide 22 mmol/L (20-30)
[2024-01-15 06:20] LABS: BUN/Creatinine Ratio 20.4 (10.0-20.0); Blood Urea Nitrogen 10 mg/dL (9-23); Glucose 130 mg/dL (74-106)
[2024-01-15 06:33] LABS: Band Neutrophils % (manual) 4; Lymphocytes % (manual) 5 (10.0-50.0); Monocytes % (manual) 3 (0-12); Platelet Estimate Decreased; RBC Morphology Normal
[2024-01-15] MEDS: levoFLOXacin 250MG 50 ML IV SCH (08:54)
[2024-01-15] MEDS: FOLIC ACID 1 MG TAB PO SCH (08:55)
[2024-01-15] MEDS: FAMOTIDINE 20 MG TAB PO SCH (08:55)
[2024-01-15] MEDS: DULOXETINE HCL 20 MG PO SCH (08:55)
[2024-01-15] MEDS ORDERED: ENOXAPARIN SOD 40 MG/0.4 ML SYRINGE SC SCH (10:00)
[2024-01-15] MEDS: HYDROcodone-ACET 5/325MG TAB PO PRN (13:01)
[2024-01-15 19:14] LABS: CRP High Sensitivity 10.61 mg/dL (<1.0)
[2024-01-15] MEDS: cloNIDine HCL 0.1 MG TAB PO PRN (22:25)
[2024-01-16] VITALS (7 sets, daily range): BP systolic 111–180; BP diastolic 52–89; PULSE 65–85; RESP 16–20; TEMP 97.2–97.8; O2SAT 96–98
[2024-01-16] MEDS: MORPHINE SULFATE INJ 2 MG/ml SYRG IV PRN (07:04)
[2024-01-16] MEDS: OXYCODONE W/ ACETAMINOPHEN 5/325MG TABLET PO PRN (17:13)
[2024-01-16] MEDS: methylPREDNISolone SOD SUCC 40 MG/ML VL ONE (22:23)
[2024-01-16] MEDS: MORPHINE SULF 15mg ER tab PO SCH (22:34)
[2024-01-17 05:00] VITALS: BP 171/77; PULSE 78; RESP 19; TEMP 98; O2SAT 93
[2024-01-17 09:00] LABS: Hepatitis B Surface Antigen Negative (Negative)
[2024-01-17 09:05] VITALS: BP 115/62; PULSE 68; RESP 16; TEMP 98.6; O2SAT 97
[2024-01-17 09:21] LABS: Hepatitis C Antibody Negative (Negative)
[2024-01-17 12:46] VITALS: BP 123/60; PULSE 68; RESP 17; TEMP 98.9; O2SAT 95
[2024-01-17 14:45] LABS: COVID19 ANTIGEN SOFIA FIA NEGATIVE (NEGATIVE)
[2024-01-17 17:07] VITALS: BP 147/89; PULSE 57; RESP 18; TEMP 98.4; O2SAT 93
[2024-01-17 20:00] VITALS: PULSE 79; RESP 18
[2024-01-17 22:00] VITALS: BP 162/90; PULSE 79; RESP 18; TEMP 98; O2SAT 95
== END 2024-01-17 23:37 | DRG 546 ==
LOC: EDBD 11:15 → ER 11:15 → OVERFLOW 16:47 → WEST WING 01-15 02:12
PROVIDERS: ADMIT Hospitalist; ATTEND Hospitalist
DX: M06.9 Rheumatoid arthritis, unspecified (principal); E87.1 Hypo-osmolality and hyponatremia; M54.50 Low back pain, unspecified; I11.9 Hypertensive heart disease without heart failure; F41.9 Anxiety disorder, unspecified; M62.830 Muscle spasm of back; Z93.3 Colostomy status; G89.4 Chronic pain syndrome; Z20.822 Contact with and (suspected) exposure to COVID-19; I48.91 Unspecified atrial fibrillation; Z80.1 Family history of malignant neoplasm of trachea, bronchus and lung; Z82.0 Family history of epilepsy and other diseases of the nervous system; Z82.3 Family history of stroke; Z82.49 Family history of ischemic heart disease and other diseases of the circulatory system; Z90.710 Acquired absence of both cervix and uterus; Z85.3 Personal history of malignant neoplasm of breast; Z82.5 Family history of asthma and other chronic lower respiratory diseases; Z95.2 Presence of prosthetic heart valve; M47.812 Spondylosis without myelopathy or radiculopathy, cervical region; M48.02 Spinal stenosis, cervical region
CPT/HCPCS: 36415; 72125; 72128; 72131; 78306; 80048; 80053; 81001; 82550; 82962; 83605; 84484; 85007; 85025; 85027; 86141; 86431; 86803; 87040; 87340; 87426; 87804; 97110; 97116; 97163; 97530; G0378; J1815; J1956; J2405